=== PATIENT | male | born 2000 | race American Indian/Alaskan Native ===

== ENCOUNTER 2021-07-26 18:37 | Emergency (ER) | payer OTHER ==
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
[2021-07-26 21:08] VITALS: BP 115/78
== END 2021-07-26 21:08 | disposition home or self-care (01) ==
LOC: ED 18:37
DX: M25.551 Pain in right hip (principal); M54.50 Low back pain, unspecified; Y99.8 Other external cause status; V89.2XXA Person injured in unspecified motor-vehicle accident, traffic, initial encounter; Y93.89 Activity, other specified; Y92.89 Other specified places as the place of occurrence of the external cause; R51.9 Headache, unspecified; F12.90 Cannabis use, unspecified, uncomplicated
CPT/HCPCS: 72100; 99283